=== PATIENT | male | born 1950 | race Caucasian/White ===

== ENCOUNTER 2020-12-15 16:22 | Inpatient (IN) | payer MEDICARE ==
[2020-12-15] MEDS ORDERED: Norepinephrine 8 MG/0.9% NS 250 ML ONE (16:24)
[2020-12-15 17:13] LABS: Hemoglobin 13.7 g/dL (14.0-18.0); Mean Corpuscular Hemoglobin 34.6 pg (27.0-31.0); Mean Platelet Volume 8.7 fL (7.4-10.4); Platelet Count 208 thou/uL (130-400); RBC Distribution Width 11.3 % (11.5-14.5); Red Blood Cell (RBC) Count 3.95 mill/uL (4.70-6.10)
[2020-12-15 17:24] LABS: ALT (SGPT) 25 U/L (8-55); AST (SGOT) 50 U/L (5-34); Albumin 2.8 g/dL (3.4-4.8); Alkaline Phosphatase 34 U/L (40-110); Anion Gap 16 mmol/L (10-20); BUN (Urea Nitrogen) 21 mg/dL (8.4-25.7); Bilirubin, Total 0.8 mg/dL (0.2-1.2); Calc. Creatinine Clearance 0 mL/min (70-130); Calcium 7.4 mg/dL (7.8-10.44); Carbon Dioxide 14 mmol/L (23-31); Chloride 107 mmol/L (98-107); Globulin 2.6 g/dL (2.4-3.5); Glucose 119 mg/dL (80-115); Lipase 8 U/L (8-78); Potassium 4.1 mmol/L (3.5-5.1); Protein, Total 5.4 g/dL (5.8-8.1); Sodium 133 mmol/L (136-145)
[2020-12-15] MEDS ORDERED: Ondansetron ODT 4 MG TAB PO PRN (17:27)
[2020-12-15 17:35] LABS: Band 35 % (5-11); Lymphocytes 2 % (21-51); MDiff Complete? YES; Macrocytosis SLIGHT = 6-15 cells (100X) (0-5/hpf); Metamyelocyte 6 % (0-0); Monocytes 1 % (0-10); Neutrophil 55 % (42-75); Platelet Morphology Comment Appears Adequate; Reflex for Review?? YES; Vacuoles MODERATE
[2020-12-15 17:46] LABS: CKMB 1.6 ng/mL (0-6.6)
[2020-12-15] MEDS ORDERED: Norepinephrine 8 MG/0.9% NS 250 ML IVPB PRN (17:47)
[2020-12-15] MEDS ORDERED: Lactated Ringer's 1,000 ML IV SCH (18:00)
[2020-12-15] MEDS ORDERED: Ondansetron PF 4 MG/2 ML Vial ONE (18:01)
[2020-12-15] MEDS ORDERED: Vancomycin 1.5 GRAM/300 ML BAG 1.5 GM in Premix Bag 1 BAG IVPB SCH (18:15)
[2020-12-15 20:23] VITALS: BMI 28.7
[2020-12-15 20:57] LABS: Lactic Acid 4.4 mmol/L (0.5-2.2)
[2020-12-15] MEDS ORDERED: Vancomycin 2 GM in Premix Bag 1 BAG IVPB SCH (21:00)
[2020-12-15 21:04] LABS: Troponin I 0.133 ng/mL (< 0.028)
[2020-12-16 00:27] LABS: Troponin I 0.176 ng/mL (< 0.028)
[2020-12-16] MEDS: Acetaminophen 325 MG TAB PO PRN ×3 (01:32→19:26)
[2020-12-16 02:47] LABS: Hemoglobin 12.2 g/dL (14.0-18.0); Lactic Acid 2.5 mmol/L (0.5-2.2); Mean Corpuscular HGB CONC 33.9 g/dL (32.0-36.0); Mean Corpuscular Hemoglobin 34.3 pg (27.0-31.0); Mean Platelet Volume 8.7 fL (7.4-10.4); Platelet Count 199 thou/uL (130-400); RBC Distribution Width 11.4 % (11.5-14.5); Red Blood Cell (RBC) Count 3.57 mill/uL (4.70-6.10); White Blood Cell (WBC) Count 47.1 thou/uL (4.8-10.8)
[2020-12-16 02:55] LABS: Troponin I 0.182 ng/mL (< 0.028)
[2020-12-16 02:57] LABS: ALT (SGPT) 31 U/L (8-55); AST (SGOT) 56 U/L (5-34); Albumin 2.8 g/dL (3.4-4.8); Alkaline Phosphatase 32 U/L (40-110); Anion Gap 12 mmol/L (10-20); BUN (Urea Nitrogen) 21 mg/dL (8.4-25.7); Bilirubin, Total 0.5 mg/dL (0.2-1.2); Calc. Creatinine Clearance 60 mL/min (70-130); Calcium 7.2 mg/dL (7.8-10.44); Carbon Dioxide 15 mmol/L (23-31); Chloride 109 mmol/L (98-107); Globulin 2.5 g/dL (2.4-3.5); Glucose 89 mg/dL (80-115); Potassium 3.5 mmol/L (3.5-5.1); Protein, Total 5.3 g/dL (5.8-8.1); Sodium 132 mmol/L (136-145)
[2020-12-16 03:03] LABS: Band 1 % (5-11); Lymphocytes 2 % (21-51); MDiff Complete? YES; Metamyelocyte 15 % (0-0); Monocytes 1 % (0-10); Neutrophil 81 % (42-75); Platelet Morphology Comment Appears Adequate
[2020-12-16] MEDS: cefTRIAXone\\ROCEPHIN 1 GM in Sodium Chloride 0.9% 100 ML IVPB SCH (07:47)
[2020-12-16] MEDS: Enoxaparin Sodium 40 MG/0.4 ML SYRINGE SC SCH (07:48)
[2020-12-16 08:32] LABS: Troponin I 0.179 ng/mL (< 0.028)
[2020-12-16] MEDS ORDERED: MULTIVIT/IRON SULF/FOLIC ACID 1 EACH TAB PO SCH (13:15)
[2020-12-16] MEDS ORDERED: Thiamine 100 MG TAB PO SCH (13:15)
[2020-12-16] MEDS: VANCOMYCIN 1.25 GM/250 ML BAG 1.25 GM in Premix Bag 1 BAG IVPB SCH (17:29)
[2020-12-16] MEDS: diphenhydrAMINE 50 MG CAP PO SCH (20:48)
[2020-12-17 04:03] LABS: Hemoglobin 12.1 g/dL (14.0-18.0); Mean Corpuscular HGB CONC 32.3 g/dL (32.0-36.0); Mean Corpuscular Hemoglobin 32.8 pg (27.0-31.0); Mean Platelet Volume 9.8 fL (7.4-10.4); Platelet Count 175 thou/uL (130-400); RBC Distribution Width 11.5 % (11.5-14.5); White Blood Cell (WBC) Count 50.9 thou/uL (4.8-10.8)
[2020-12-17 04:18] LABS: Band 47 % (5-11); Eosinophils 1 % (0-10); Hypochromia SLIGHT = 6-15 cells (100X) (0-5/hpf); Lymphocytes 2 % (21-51); MDiff Complete? YES; Metamyelocyte 3 % (0-0); Monocytes 5 % (0-10); Neutrophil 41 % (42-75); Platelet Morphology Comment Appears Decreased; Reactive Lymphocytes 1 % (0-10)
[2020-12-17 04:21] LABS: Anion Gap 13 mmol/L (10-20); BUN (Urea Nitrogen) 17 mg/dL (8.4-25.7); Calc. Creatinine Clearance 82 mL/min (70-130); Calcium 7.9 mg/dL (7.8-10.44); Carbon Dioxide 15 mmol/L (23-31); Chloride 111 mmol/L (98-107); Glucose 70 mg/dL (80-115); Potassium 3.5 mmol/L (3.5-5.1); Sodium 135 mmol/L (136-145)
[2020-12-17 07:52] LABS: Thyroid Stimulating Hormone 3.1573 uIU/mL (0.35-4.94)
[2020-12-17] MEDS: cefTRIAXone\\ROCEPHIN 1 GM in Sodium Chloride 0.9% 100 ML IVPB SCH (09:19)
[2020-12-17] MEDS: Enoxaparin Sodium 40 MG/0.4 ML SYRINGE SC SCH (09:21)
[2020-12-17] MEDS: Thiamine 100 MG TAB PO SCH (09:22)
[2020-12-17] MEDS: MULTIVIT/IRON SULF/FOLIC ACID 1 EACH TAB PO SCH (09:22)
[2020-12-17] MEDS: Acetaminophen 325 MG TAB PO PRN ×3 (09:22→19:37)
[2020-12-17] MEDS ORDERED: Iopamidol-370 76% 500 ML 1 ML ONE (11:07)
[2020-12-17 11:51] LABS: Iron 12 ug/dL (65-175); Iron Binding Capacity, Total 143 mcg/dL (261-462)
[2020-12-17 17:41] LABS: Vancomycin, Trough 6.3 ug/mL
[2020-12-17] MEDS: Prevnar 13-Val Conj/PF 0.5 ML SYRINGE IM ONE (18:13)
[2020-12-17] MEDS: VANCOMYCIN 1.25 GM/250 ML BAG 1.25 GM in Premix Bag 1 BAG IVPB SCH (19:02)
[2020-12-17] MEDS: Vancomycin 1 GM in Premix Bag 1 BAG IVPB SCH (19:36)
[2020-12-17] MEDS: diphenhydrAMINE 50 MG CAP PO SCH (19:41)
[2020-12-18] MEDS: Acetaminophen 325 MG TAB PO PRN ×4 (00:07→19:49)
[2020-12-18] MEDS ORDERED: diphenhydrAMINE 50 MG CAP PO PRN (05:51)
[2020-12-18] MEDS: Vancomycin 1 GM in Premix Bag 1 BAG IVPB SCH ×2 (06:01→17:39)
[2020-12-18] MEDS: cefTRIAXone\\ROCEPHIN 1 GM in Sodium Chloride 0.9% 100 ML IVPB SCH (08:02)
[2020-12-18] MEDS: Enoxaparin Sodium 40 MG/0.4 ML SYRINGE SC SCH (08:10)
[2020-12-18] MEDS: Thiamine 100 MG TAB PO SCH (08:11)
[2020-12-18] MEDS: MULTIVIT/IRON SULF/FOLIC ACID 1 EACH TAB PO SCH (08:11)
[2020-12-18 10:55] LABS: Hemoglobin 13.1 g/dL (14.0-18.0); Mean Corpuscular HGB CONC 33.2 g/dL (32.0-36.0); Mean Corpuscular Hemoglobin 33.6 pg (27.0-31.0); Mean Platelet Volume 10.2 fL (7.4-10.4); Platelet Count 167 thou/uL (130-400); RBC Distribution Width 11.6 % (11.5-14.5); White Blood Cell (WBC) Count 39.6 thou/uL (4.8-10.8)
[2020-12-18 10:56] LABS: Band 7 % (5-11); Lymphocytes 9 % (21-51); MDiff Complete? YES; Macrocytosis SLIGHT = 6-15 cells (100X) (0-5/hpf); Monocytes 3 % (0-10); Neutrophil 81 % (42-75); Platelet Morphology Comment Appears Adequate
[2020-12-18] MEDS: Prevnar 13-Val Conj/PF 0.5 ML SYRINGE IM ONE (13:44)
[2020-12-19] MEDS: Acetaminophen 325 MG TAB PO PRN ×4 (05:02→21:23)
[2020-12-19 05:11] LABS: Band 4 % (5-11); Hemoglobin 12.5 g/dL (14.0-18.0); Hypochromia SLIGHT = 6-15 cells (100X) (0-5/hpf); Lymphocytes 24 % (21-51); MDiff Complete? YES; Mean Corpuscular HGB CONC 34.1 g/dL (32.0-36.0); Mean Corpuscular Hemoglobin 34.3 pg (27.0-31.0); Mean Platelet Volume 9.5 fL (7.4-10.4); Monocytes 12 % (0-10); Neutrophil 55 % (42-75); Platelet Count 160 thou/uL (130-400); Platelet Morphology Comment Appears Adequate; RBC Distribution Width 11.6 % (11.5-14.5); Reactive Lymphocytes 5 % (0-10); Red Blood Cell (RBC) Count 3.66 mill/uL (4.70-6.10); White Blood Cell (WBC) Count 24.1 thou/uL (4.8-10.8)
[2020-12-19 05:15] LABS: Vancomycin, Trough 11.9 ug/mL
[2020-12-19] MEDS ORDERED: VANCOMYCIN 1.25 GM/250 ML BAG 1.25 GM in Premix Bag 1 BAG IVPB SCH (06:00)
[2020-12-19] MEDS: cefTRIAXone\\ROCEPHIN 1 GM in Sodium Chloride 0.9% 100 ML IVPB SCH (09:53)
[2020-12-19] MEDS: Enoxaparin Sodium 40 MG/0.4 ML SYRINGE SC SCH (09:53)
[2020-12-19] MEDS: Thiamine 100 MG TAB PO SCH (09:54)
[2020-12-19] MEDS: MULTIVIT/IRON SULF/FOLIC ACID 1 EACH TAB PO SCH (09:54)
[2020-12-19] MEDS ORDERED: Cefdinir 300 MG CAP PO SCH ×2 (10:27→10:45)
[2020-12-19] MEDS ORDERED: Prevnar 13-Val Conj/PF 0.5 ML SYRINGE IM ONE (10:29)
[2020-12-19] MEDS ORDERED: Amlodipine 5 MG TAB PO SCH (12:30)
[2020-12-19] MEDS ORDERED: FLU VACC QS2020-21(6MOS UP)/PF 60 MCG/0.5 ML SYRINGE IM ONE (13:00)
[2020-12-19] MEDS ORDERED: FLU VACC QS2020-21(65YR UP)/PF 240 MCG/0.7 ML SYRINGE IM ONE (13:15)
[2020-12-19] MEDS: hydrALAZINE 20 MG/ML VIAL SLOW IVP PRN ×2 (16:17→20:39)
[2020-12-19] MEDS: Cefdinir 300 MG CAP PO SCH (20:13)
[2020-12-19] MEDS ORDERED: diphenhydrAMINE 25 MG CAP PO PRN (22:45)
[2020-12-20 06:59] LABS: Hemoglobin 12.8 g/dL (14.0-18.0); Mean Corpuscular HGB CONC 33.7 g/dL (32.0-36.0); Mean Corpuscular Hemoglobin 33.6 pg (27.0-31.0); Mean Corpuscular Volume 99.9 fL (78.0-98.0); Mean Platelet Volume 9.7 fL (7.4-10.4); Platelet Count 239 thou/uL (130-400); RBC Distribution Width 11.6 % (11.5-14.5); Red Blood Cell (RBC) Count 3.81 mill/uL (4.70-6.10); White Blood Cell (WBC) Count 21.2 thou/uL (4.8-10.8)
[2020-12-20] MEDS: MULTIVIT/IRON SULF/FOLIC ACID 1 EACH TAB PO SCH (08:13)
[2020-12-20] MEDS: Thiamine 100 MG TAB PO SCH (08:14)
[2020-12-20] MEDS: Enoxaparin Sodium 40 MG/0.4 ML SYRINGE SC SCH (08:15)
[2020-12-20] MEDS: Cefdinir 300 MG CAP PO SCH (08:15)
[2020-12-20] MEDS ORDERED: Amlodipine 5 MG TAB PO SCH (09:00)
[2020-12-20 09:21] LABS: Band 1 % (5-11); Lymphocytes 29 % (21-51); MDiff Complete? YES; Monocytes 18 % (0-10); Neutrophil 48 % (42-75); RBC Morphology Normal; Reactive Lymphocytes 4 % (0-10)
[2020-12-20 11:47] VITALS: TEMP 97.8
[2020-12-20] MEDS: hydrALAZINE 20 MG/ML VIAL SLOW IVP PRN (13:10)
[2020-12-20 13:14] VITALS: BP 191/93
== END 2020-12-20 15:41 | disposition home or self-care (01) | DRG 871 ==
LOC: ERS 16:22 → IMCU/EMU 16:57 → T4-A 12-17 15:47
PROVIDERS: ADMIT Family Medicine; ATTEND Family Medicine
DX: A41.9 Sepsis, unspecified organism (principal); I21.A1 Myocardial infarction type 2; R65.21 Severe sepsis with septic shock; E87.2 Acidosis; N17.9 Acute kidney failure, unspecified; Z90.49 Acquired absence of other specified parts of digestive tract; Z90.81 Acquired absence of spleen; Z87.891 Personal history of nicotine dependence; K04.7 Periapical abscess without sinus; D72.823 Leukemoid reaction; F10.10 Alcohol abuse, uncomplicated; N18.9 Chronic kidney disease, unspecified; D53.9 Nutritional anemia, unspecified; R19.7 Diarrhea, unspecified
CPT/HCPCS: 36415; 70487; 74177; 80048; 80053; 80202; 82553; 82607; 82728; 82746; 83540; 83550; 83605; 83630; 83690; 83880; 84145; 84443; 84484; 85025; 85060; 87045; 87046; 87077; 87324; 87328; 87329; 87427; 87449; 90471; 90670; 93005; 96374; G0009; J0360; J0696; J1650; J2405; J3370; J3490; Q0163; Q9967